=== PATIENT | female | born 1995 | race Caucasian/White ===

== ENCOUNTER 2023-09-08 06:59 | Emergency (ER) | payer SELFPAY ==
[2023-09-08 07:01] VITALS: BP 142/87; PULSE 88; RESP 16; TEMP 36.2; O2SAT 100; BMI 30.8
--- NOTE | 2023-09-08 07:08 | ED.VIS.LOWEX ---
HPI History of Present Illness HPI Narrative: Patient presents with pain and swelling to her left calf that has been getting worse over the past 2 days. Patient describes her pain as like a charley horse. Patient states it is worse with walking and movement of her ankle. Patient states it is better with rest. Patient was to some tingling into her toes. Patient states her pain has been constant. Patient states her pain began rather suddenly. Patient denies any trauma or injury. Patient states her womens health nurse practitioner referred her to the emergency department for possible DVT. Patient denies any chest pain. Chief Complaint: Lower Extremity Injury Informant: patient Onset/Context/Timing Onset: Days (2) Context: Sudden Onset Timing: Continuous Quality of Pain: Aching (Like a charley horse) Location: Left calf Worsened by: Walking, movement of her ankle Relieved by: Rest Associated Symptoms Associated Symptoms: Positive for Parasthesia; Negative for Weakness or Loss of Funtion [facility] Medical History (Updated 09/08/23 @ 08:[address] Gen Clifford, DO) Asthma DVT (deep venous thrombosis) Home Medications Control 1 tab PO DAILY 09/15/13 [History Last Taken Unknown] Cetirizine Hcl [Zyrtec] 10 mg PO DAILY 09/15/13 [History Last Taken Unknown] budesonide 90 mcg/actuation breath activated powder inhaler (Pulmicort Flexhaler) 1 puff inhalation BID 09/15/13 [History Last Taken Unknown] famotidine 20 mg tablet 20 mg PO DAILY 09/15/13 [History Last Taken Unknown] hydrocodone-acetaminophen 5-325mg 5mg-325mg 1 - 2 tab PO Q4H PRN PRN Pain ##20 09/15/13 [Rx Last Taken Unknown] mometasone 110 mcg/actuation(30 doses) breath activated powder inhaler (Asmanex Twisthaler) 110 mcg inhalation DAILY 09/15/13 [History Last Taken Unknown] montelukast 10 mg tablet 10 mg PO DAILY 09/15/13 [History Last Taken Unknown] ondansetron 4 mg disintegrating tablet 4 mg PO Q8H PRN PRN Nausea #10 tabs 09/15/13 [Rx Last Taken Unknown] Allergy/AdvReac Type Severity Reaction Status Date / Time morphine AdvReac Mild MEAN Verified 09/08/23 07:05 Surgical History (Updated 09/08/23 @ 07:[address] Gen Clifford DO) Hx of partial thyroidectomy Social History Smoking Status: Current every day smoker tobacco type: e-cigarettes ROS ROS ED Constitutional Constitutional ED: Reports chills and subjective; Denies fever(s) Eyes Eyes: Denies blurry vision or change in vision ENT ENT ED: Denies rhinorrhea or sore throat Cardiovascular Cardiovascular: Denies chest pain or palpitations Respiratory/Chest Respiratory/Chest: Reports dyspnea; Denies cough Gastrointestinal Gastrointestinal: Reports diarrhea and nausea; Denies vomiting Genitourinary Genitourinary ED: Denies dysuria or hematuria Musculoskeletal Musculoskeletal: Denies back pain or neck pain Integumentary Denies abscess or rash Neurologic Neurologic: Reports headache(s); Denies weakness Allergic/Immunologic Allergic/Immunologic ED: Denies mouth swelling or urticaria EXAM Physical Exam Const Vital Signs: 09/08/23 07:01 Temperature 97.1 F L Temperature Source Temporal Pulse Rate 88 Respiratory Rate 16 Blood Pressure 142/87 H Blood Pressure Mean 105 Pulse Ox 100 Oxygen Delivery Method Room Air Positive well nourished and well developed General Appearance ED: well developed and NAD HEENT Reports moist mucous membranes Neck full ROM and supple Resp normal respiratory effort and clear to auscultation bilaterally Cardio regular rate and regular rhythm Extremity Extremity Narrative: There is mild edema and tenderness over the left lower leg. There is no deformity noted. There is no ecchymosis. There is tenderness over the left calf. Pedal pulses are equal bilaterally. Sensation was intact to light touch in all digits. Capillary refill was less than 2 seconds in all digits. There is some pain with dorsiflexion of the left ankle. General Extremety ED: Yes edema General Extremity: edema Neuro oriented x3, CN's II-XII intact bilaterally, moves all extremities and no sensory deficits noted Sensorium / Orientation: alert Motor Exam: strength 5/5 throughout Psych mental status grossly normal MDM MDM MDM Narrative Medical decision making narrative: Differential diagnosis includes DVT and calf strain. Venous duplex of the left lower extremity will be obtained to assess for DVT. Radiography Diagnostic Testing: Venous duplex of the left lower extremity was obtained. There is no evidence of DVT. Treatment and Re-Evaluation Narrative: Smoking cessation was discussed. Patient was advised of her findings. Patient was instructed to continue Tylenol and ibuprofen as needed for pain. Patient was instructed to follow-up with her primary care physician in 5 to 7 days. Patient understood and was agreeable with the plan. All questions were answered. Discharge Plan Triage Chief Complaint: Lower Extremity Injury ED Provider: Gen Clifford Dx/Rx/DC Orders Clinical Impression: Pain of left calf, Asthma Instructions: ED Muscle Strain, Extremity Prescriptions: No Action famotidine 20 MG tablet 20 mg PO DAILY montelukast 10 MG tablet 10 mg PO DAILY budesonide [Pulmicort Flexhaler] 1 PUFF inhaler 1 puff inhalation BID mometasone [Asmanex Twisthaler] 110 MCG aerosol powdr breath activated 110 mcg inhalation DAILY Control 1 tab PO DAILY Cetirizine Hcl [Zyrtec] 10 MG tablet 10 mg PO DAILY hydrocodone-acetaminophen 1 TABLET tablet 1 - 2 tab PO Q4H PRN PRN (Reason: Pain) Qty: 20 0RF ondansetron 4 MG tablet 4 mg PO Q8H PRN PRN (Reason: Nausea) Qty: 10 0RF Primary Care Provider: Care Physician,No Primary Referrals: [facility] Doctor,Out of [Non-Staff] - 5-7 Days Disposition Disposition: Home, Self Care
--- NOTE | 2023-09-08 07:21 | VDLE_ITS ---
Reason For Study: Left leg swelling RIGHT LEFT CFV is compressible, spontaneous, phasic, GSV is normal. competent and demonstrates normal CFV is compressible, spontaneous, phasic, augmentation. competent, and demonstrates normal Procedure augmentation. This is a venous duplex using B-mode, color FV is compressible, spontaneous, phasic, flow and spectral Doppler. competent and demonstrates normal Exam performed portable in ED. augmentation. A preliminary report was called and/or faxed POP V is compressible, spontaneous, phasic, to Saima RN. competent and demonstrates normal augmentation. T/P Trunk is compressible. PTV is compressible. LT PerV is compressible. VL/Venous Duplex US, Unilateral Interpretation Summary Deep veins of the left lower extremity are patent and compressible segmentally. There is no evidence of left lower extremity deep vein thrombosis. The left great saphenous vein calvin ears patent and compressible segmentally. Ordering Physician: Gen Clifford Performed By: Emily Greene RVT
[2023-09-08] MEDS: Ondansetron ODT 4 MG Tablet PO (07:57)
[2023-09-08] MEDS: Acetaminophen 500 MG Tablet 1000 MG PO (07:58)
[2023-09-08 08:58] VITALS: BP 140/78; PULSE 79; RESP 16; TEMP 36.6; O2SAT 99
== END 2023-09-08 09:08 | disposition home or self-care (01) ==
PROVIDERS: Emergency Provider Emergency Medicine; Visit Provider Emergency Medicine
DX: M79.662 Pain in left lower leg (principal); J45.909 Unspecified asthma, uncomplicated; F17.290 Nicotine dependence, other tobacco product, uncomplicated; Z79.3 Long term (current) use of hormonal contraceptives; Z79.899 Other long term (current) drug therapy
CPT/HCPCS: 93971; 99282

== ENCOUNTER 2024-04-03 10:25 | Emergency (ER) | payer OTHER, SELFPAY ==
[2024-04-03 10:26] VITALS: BP 126/76; PULSE 89; RESP 16; TEMP 36.9; O2SAT 98; BMI 31.2
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
[2024-04-03 12:06] VITALS: BP 124/78; PULSE 64; RESP 18; TEMP 36.6; O2SAT 99
== END 2024-04-03 12:07 | disposition home or self-care (01) ==
PROVIDERS: Emergency Provider Emergency Medicine; Visit Provider Emergency Medicine
DX: S20.20XA Contusion of thorax, unspecified, initial encounter (principal); Y04.8XXA Assault by other bodily force, initial encounter; Y99.0 Civilian activity done for income or pay; F17.290 Nicotine dependence, other tobacco product, uncomplicated; Z86.718 Personal history of other venous thrombosis and embolism
CPT/HCPCS: 71101; 99282